=== PATIENT | male | born 1975 | race Caucasian/White ===

== ENCOUNTER 2018-04-25 15:28 | Emergency (ER) | payer BC ==
[2018-04-25] MEDS ORDERED: Tetan/Diph/Pertus SYR(Tdap)* 0.5 ML SYR(BOOSTRIX) use SYR IM ONE (16:03)
[2018-04-25 16:07] VITALS: BP 130/73
--- NOTE | 2018-04-25 16:22 | UC ---
Skin Complaint HPI - HPI Summary HPI Summary: Patient is a assistant general manager. Sustained a puncture wound to distal left third finger from a nail gun yesterday. About 1 hour later he caught his distal left index finger with a hammer and sustained an avulsion injury. Last tetanus 8 years ago. - History of Current Complaint Chief Complaint: UCTrauma Time Seen by Provider: 04/25/18 16:03 Stated Complaint: PUNCTURE WOUND Hx Obtained From: Patient Onset/Duration: Sudden Onset, Lasting Days - 1 DAY, Still Present Timing: Constant Onset Severity: Moderate Current Severity: Mild Pain Intensity: 0 Pain Scale Used: 0-10 Numeric Character: Pain Aggravating Factor(s): Touch Associated Signs & Symptoms: Positive: Bruising, Tenderness - Allergy/Home Medications Allergies/Adverse Reactions: Allergies Allergy/AdvReac Type Severity Reaction Status Date / Time bees Allergy resp issue Uncoded 04/25/18 16:07 Review of Systems Constitutional: Negative Skin: Bruising - PUNCTURE WOUND AND BRUISING LEFT 3RD FINGER, Other - AVULSION LEFT 2ND FINGER Respiratory: Negative Cardiovascular: Negative Gastrointestinal: Negative Musculoskeletal: Edema All Other Systems Reviewed And Are Negative: Yes PMH/Surg Hx/FS Hx/Imm Hx Previously Healthy: Yes - Surgical History Surgical History: None - Family History Known Family History: Positive: Hypertension - Social History Alcohol Use: Daily Substance Use Type: Marijuana Substance Use Comment - Amount & Last Used: occasional Smoking Status (MU): Former Smoker - Immunization History Most Recent Tetanus Shot: 8 years ago Physical Exam Triage Information Reviewed: Yes Appearance: Well-Appearing, No Pain Distress, Well-Nourished Vital Signs: Initial Vital Signs Temp 97.5 F 04/25/18 16:03 Pulse 78 04/25/18 16:03 Resp 18 04/25/18 16:03 BP 130/73 04/25/18 16:03 Pulse Ox 98 04/25/18 16:03 Vital Signs Reviewed: Yes Eyes: Positive: Conjunctiva Clear ENT: Positive: Hearing grossly normal Neck: Positive: Supple Respiratory: Positive: No respiratory distress, No accessory muscle use Cardiovascular: Positive: Pulses Normal Abdomen Description: Positive: Soft Musculoskeletal: Positive: ROM Intact, Edema @ - DISTAL LEFT 3RD FINGER, Other: - MILDLY TENDER DISTAL LEFT 3RD FINGER Neurological: Positive: Alert Psychological: Positive: Age Appropriate Behavior Skin: Positive: Other - <1CM SKIN AVULSION DISTAL LEFT 2ND FINGER. PUNCTURE WOUND DISTAL LEFT 3RD FINGER WITH SWELLING. NO DRAINAGE Course/Dx - Course Course Of Treatment: PT DECLINES XRAYS TO EVAL FOR TUFT INJURY. TDAP BOOSTED. KEFLEX FOR INFECTION PROPHYLAXIS. OTC MEDS NEEDED FOR DISCOMFORT. - Diagnoses Provider Diagnoses: 1. PUNCTURE WOUND LEFT 3RD FINGER. 2. SKIN AVULSION LEFT 2ND FINGER Discharge - Sign-Out/Discharge Documenting (check all that apply): Patient Departure All imaging exams completed and their final reports reviewed: No Studies - Discharge Plan Condition: Stable Disposition: HOME Prescriptions: Cephalexin CAP* [Keflex 500 CAP*] 500 mg PO BID #14 cap Patient Education Materials: Puncture Wound (ED) Referrals: Yury Renee DO [Doctor of Osteopathy] - If Needed Additional Instructions: TAKE ANTIBIOTICS FOR THE FULL COURSE TO HELP PREVENT INFECTION. SEEK FOLLOW-UP IF YOU DEVELOP SPREADING REDNESS OF THE SKIN, PURULENT DRAINAGE, FEVER, INCREASED PAIN OR ANY OTHER CONCERNING SYMPTOMS. TETANUS IMMUNIZATION GIVEN (TDAP): You have been given an immunization against tetanus. Please record this in your records. In general, a booster is needed only once every 10 years. The tetanus shot protects against tetanus or "lockjaw," which is a complication of certain wound infections (the tetanus shot cannot protect against the actual infection). The immunization site may become warm and red due to local reaction. If this occurs, apply warm compresses and take aspirin or ibuprofen to reduce inflammation and discomfort. Return for evaluation if the reaction becomes severe. - Billing Disposition and Condition Condition: STABLE Disposition: Home
== END 2018-04-25 16:27 | disposition home or self-care (01) ==
LOC: UCCORT 15:28
DX: S61.233A Puncture wound without foreign body of left middle finger without damage to nail, initial encounter (principal); W29.4XXA Contact with nail gun, initial encounter; Y93.89 Activity, other specified; Y92.9 Unspecified place or not applicable; Y99.0 Civilian activity done for income or pay; S61.201A Unspecified open wound of left index finger without damage to nail, initial encounter; W27.8XXA Contact with other nonpowered hand tool, initial encounter; Z87.891 Personal history of nicotine dependence
CPT/HCPCS: 90471; 90715; 99212; G0463